=== PATIENT | female | born 1975 | race Caucasian/White ===

== ENCOUNTER → 2017-04-18 | Day surgery (SDC) | payer OTHER ==
[2017-04-18] VITALS (12 sets, daily range): BP systolic 117–166; BP diastolic 60–99; PULSE 61–87; TEMP 36.4; O2SAT 94–100; Ht 165.1 cm; Wt 80.0 kg
[~2017-04-18] VITALS: Ht 165.1 cm; Wt 80.0 kg
[~2017-04-18] MED LIST: ASPI-495 PO; LIDOCAINE HCL 2% VISC SOLN 20 ML UDC ONE; PARO20TA3 PO; PROPOFOL IV EMULSION 10 MG/ML 20 ML VIAL IV ONE
--- NOTE | 2017-04-18 07:17 | History & Physical Bridge Note ---
H&P Re-Evaluation Bridge Note: I have examined the patient, reviewed the History & Physical and in the interval since the performance of the History & Physical I have noted the following changes of clinical significance: No changes noted, labs reviewed as resulted yesterday. screen was negative. Chem panel revealed normal kidney function and normal electrolytes.
--- NOTE | 2017-04-18 08:30 | Discharge Instructions ---
Discharge Instructions Procedure Procedure Date: Apr 18, 2017. Reason for Visit: Ebstein's anomaly, PFO Discharge Discharge Date: Apr 18, 2017. Discharge Diagnosis: PFO Lambls Excrescence of aortic valve. Tricuspid regurgitation Last Recorded Wt (Kilograms): 80 Anesthesia Post Anesthesia Instructions: If you have had General Anesthesia or IV Sedation: * Do not drive today. * Resume driving when surgeon permits. * Do not make important decisions or sign legal documents today. * Call surgeon for: 1. Temperature elevations greater than 101 degrees F. 2. Uncontrollable pain. 3. Excessive bleeding. 4. Persistent nausea and vomiting. 5. Medication intolerance (nausea, vomiting or rash). * For nausea and vomiting use only clear liquids such as: tea, soda, bouillon until nausea subsides, then gradually increase diet as tolerated. * If you have any concerns or questions, call your surgeon's office. If physician is unavailable and it is an emergency, call 911 or go to the nearest emergency room. Instructions Activity Recommendations: limitations as noted below Recommended Home Diet: resume previous diet Allergies: Coded Allergies: No Known Allergies (Unverified , 04/18/17) Provider Instructions ACTIVITY RECOMMENDATIONS: Resume activities as tolerated with no limitations unless specified. _x_ No lifting over 10__ pounds for 24 hours. _x_ Do not engage in vigorous exercise, sexual activity, or sports for 24 hours. _x_ Do not drive or operate any motorized equipment for 24 hours. _x_ You may return to work/school tomorrow. _x_ Nothing to eat or drink until gag reflex returns. _x_ No HOT or WARM liquids for _24_ hours. _x_ Avoid "scratchy" foods such as potato chips or pretzels for 24 hours following procedure. SPECIAL CARE: If you experience coughing up or vomiting of blood, contact _Dr Will Follow Up Follow-up with: Keep follow up appointment with Dr Will as scheduled. Earl Foster Recommendations: Call your doctor if: * Temperature above 101 degrees * Pain not relieved by pain medicine ordered * There is increased drainage or redness from any incision * You have any unanswered questions or concerns. Your Doctors Instructions noted above were prepared by provider David Will. Patient Signature Section: Patient Instructions Signature Page Osiris Mauro Patient (or Guardian) Signature/Date: I have read and understand the instructions given to me by my caregivers. Caregiver/RN/Doctor Signature/Date: The above-named patient and/or guardian has received patient instructions on this date. + Original Patient Signature Page (only) stays with chart. Please make copy for patient.
--- NOTE | 2017-04-18 10:57 | Anesthesiology Progress Note ---
Anesthesia Post Op Note Date & Time Apr 18, 2017 at 10:57 Vital Signs Pain Intensity: 0 Vital Signs Past 12 Hours Date Time Temp Pulse Resp B/P (MAP) Pulse Ox O2 Delivery O2 Flow Rate FiO2 04/18/17 09:00 74 16 130/60 (83) 94 Room Air 04/18/17 08:40 75 16 120/65 (83) 94 Room Air 04/18/17 08:30 73 16 128/83 (98) 94 Room Air 04/18/17 08:20 63 18 127/61 100 Nasal Cannula 4 04/18/17 08:20 73 16 122/76 (91) 94 Room Air 04/18/17 08:15 65 18 126/67 100 Nasal Cannula 4 04/18/17 08:10 68 16 122/64 100 Nasal Cannula 4 04/18/17 08:05 67 16 132/69 100 Nasal Cannula 4 04/18/17 08:00 66 16 117/66 100 Nasal Cannula 4 04/18/17 07:55 69 16 148/68 100 Nasal Cannula 4 04/18/17 07:50 73 16 119/69 100 Nasal Cannula 4 04/18/17 07:45 72 16 135/93 100 Nasal Cannula 4 04/18/17 07:40 87 16 166/99 100 Nasal Cannula 4 04/18/17 07:35 87 16 154/84 100 Nasal Cannula 4 04/18/17 07:05 36.4 61 16 143/88 96 Room Air Notes Mental Status: alert / awake / arousable, participated in evaluation Pt Amnestic to Procedure: Yes Nausea / Vomiting: adequately controlled Pain: adequately controlled Airway Patency, RR, SpO2: stable & adequate BP & HR: stable & adequate Hydration State: stable & adequate Anesthetic Complications: no major complications apparent
--- NOTE | 2017-04-18 12:40 | TEE ---
*NOTICE TO RECEIVING CONSTITUTION PARTY AGENCY This information is strictly Confidential and protected under [place] law. [place] law prohibits you from making any further disclosure of this information unless further disclosure is expressly permitted by the written consent of the person to whom it pertains or is authorized by law. A general authorization for the release of medical or other information is not sufficient for this purpose. Hospital accepts no responsibility if the information is made available to any other person, INCLUDING THE PATIENT. Interpretation Summary * Name: LIVIER GIANG Study Date: 04/18/2017 07:28 AM BP: 143/88 mmHg * Patient Location: C.CATH HR: 100 * : 1975 (M/d/yyyy) Gender: Female Height: 65 in * Age: 41 yrs Ethnicity: [place] Weight: 175 lb * Ordering Physician: David Will DO, [facility] * Performed By: Comfort Medrano RDCS * * Reason For Study: Alfred anomaly, PFO * BSA: 1.9 m2 * -- Conclusions -- * There is displacement of the septal and posterior leaflets of the tricuspid valve consistent with the patient's history of Ebstein's anomaly. * There is moderate to severe tricuspid regurgitation. * The right ventricle is severely dilated. * The right ventricular systolic function is normal. * The right atrium is severely dilated. * There is is a linear mobile echodensity noted on the ventricular aspent of the aortic valve consistent with a Lambl's Excrescence. * A large PFO was present with severe right to left shunt on Color Flow Doppler and with administration of agitated saline contrast. Procedure Details * The transesophageal portion of this study was personally supervised by the undersigned interpreting physician. * ALIX Probe #1 utilized for procedure. * The study was performed in Cardiac Catheterization Lab. * Time out was conducted by the physician, nurse, and microelectronics technician with positive identification of patient and procedure. * Informed consent for Transesophageal Echocardiogram was obtained prior to the procedure. * An intravenous line was placed. A topical anesthetic agent was used for oropharangeal anesthesia. A bite block was inserted. * Sedation performed by the anesthesia department. * The patient's vital signs, including blood pressure, heart rate, pulse oximetry and cardiac rhythm were monitored throughout the procedure . * The posterior oropharynx was anesthetized using a topical anesthetic spray. A bite guard was inserted. * A multifrequency, multiplane transesopheageal echocardiographic endoscope was inserted and manipulated in the standard fashion to achieve multiplane views. * The transesophageal probe was passed without difficulty. * The usual views were obtained; basal, mid-esophageal, transgastric and aortic views. * The patient tolerated the procedure well without evidence of orophangeal or esophageal trauma. * A 2D transesophageal echocardiogram with spectral and color flow Doppler was performed. * Contrast injection with agitated saline was performed. * Procedure start time 07:42. Procedure end time 08:17. * A 2D transesophageal echocardiogram with Doppler and color flow Doppler was performed. Left Ventricle * The left ventricle is normal in size. * There is normal left ventricular wall thickness. * Left ventricular systolic function is normal. * Ejection Fraction = 60-65%. * The left ventricular wall motion is normal. Right Ventricle * The right ventricle is severely dilated. * The right ventricular systolic function is normal. Atria * The left atrial size is normal. * No thrombus is detected in the left atrial appendage. * No left atrial mass or thrombus visualized. * The right atrium is severely dilated. * A large PFO was present with severe right to left shunt on Color Flow Doppler and with administration of agitated saline contrast. Mitral Valve * The mitral valve anatomy is normal. * There is no mitral valve prolapse present. * There is no vegetation seen on the mitral valve. * There is no mitral valve stenosis. * Significant mitral regurgitation is absent. Tricuspid Valve * There is displacement of the septal and posterior leaflets of the tricuspid valve consistent with the patient's history of Ebstein's anomaly. * There is no tricuspid stenosis. * There is moderate to severe tricuspid regurgitation. * Doppler findings do not suggest pulmonary hypertension. Aortic Valve * The aortic valve is trileaflet. * There is is a linear mobile echodensity noted on the ventricular aspent of the aortic valve consistent with a Lambl's Excrescence. * No hemodynamically significant valvular aortic stenosis. * No aortic regurgitation is present. Pulmonic Valve * The pulmonic valve is not well seen, but is grossly normal. Great Vessels * The aortic root is normal size. * The left upper and left lower pulmonary veins were identified with 2D imaging and normal Doppler pattern noted. The right upper and right lowere pulmonary veins were identified with 2D and normal Doppler pattern was present. Pericardium * There is no pericardial effusion. MMode 2D Measurements and Calculations Ao root diam 3.3 cm Ao root area 8.4 cm\S\2
== END | disposition home or self-care (01) ==
LOC: C.CATH 06:44
PROVIDERS: ATTEND Specialist
DX: Q22.5 Ebstein's anomaly (principal); Q21.1 Atrial septal defect; F41.0 Panic disorder [episodic paroxysmal anxiety]; E78.5 Hyperlipidemia, unspecified; I07.1 Rheumatic tricuspid insufficiency; E55.9 Vitamin D deficiency, unspecified; Z79.82 Long term (current) use of aspirin; Z79.899 Other long term (current) drug therapy